=== PATIENT | female | born 1965 | race Caucasian/White ===

== ENCOUNTER 2025-05-19 06:05 | Emergency (ER) | payer OTHER, SELFPAY ==
[2025-05-19 06:09] VITALS: BP 160/82; PULSE 82; TEMP 36.9; O2SAT 96; BMI 35.7
--- NOTE | 2025-05-19 06:28 | ED_ITS ---
HPI HPI - Extremity Injury (Lower) General Chief Complaint: Extremity Injury, Lower Stated Complaint: R KNEE PAIN Time Seen by Provider: 05/19/25 06:28 Source: patient Mode of arrival: walk-in Limitations: no limitations History of Present Illness HPI Narrative: states yesterday walking in her driveway and experienced acute pain at her right knee. Describes a pop of the knee. Pain has progressed and is now also in her calf. No chest pain or dyspnea. No fever or chills Related Data Allergies Allergy/AdvReac Type Severity Reaction Status Date / Time latex AdvReac Mild Rash Verified 05/19/25 06:17 meperidine (From Demerol) AdvReac Mild Rash Verified 05/19/25 06:17 Review of Systems ROS Status of ROS 10 or more systems reviewed and unremark able except as noted in history and below PFSH PFSH Social History Little interest or pleasure in doing things: not at all Feeling down, depressed, or hopeless: not at all Exam Constitutional Vital Signs, click to edit/add: Last Vital Signs Temp 98.5 F 05/19/25 06:09 Pulse 82 05/19/25 06:09 Resp 18 05/19/25 06:09 BP 160/82 H 05/19/25 06:09 Pulse Ox 96 05/19/25 06:09 O2 Del Method Room Air 05/19/25 06:09 Common normals: no apparent distress, average body habitus, oriented x3, no limitations, healthy appearing, alert and well nourished [facility] Common normals: normocephalic, head/scalp atraumatic and hearing grossly normal bilaterally Eye Common normals: PERRL, EOMs intact bilaterally and conjunctivae normal Respiratory Common normals: normal respiratory effort, no retractions, no use of accessory muscles and clear to auscultation bilaterally Cardio Common normals: regular rate, regular rhythm, S1 normal heart sound and S2 normal heart sound Extremity Other: no obvious swelling of her right leg. Does have popliteal and calf tenderness able to flex and extend the knee Neuro Common normals: oriented x3, CN's II-XII intact bilaterally, moves all extremities and no focal motor deficits Psych Appearance: grossly normal Course Vital Signs Vital signs: Vital Signs Temperature 98.5 F 05/19/25 06:09 Pulse Rate 82 05/19/25 06:09 Respiratory Rate 18 05/19/25 06:09 Blood Pressure 160/82 H 05/19/25 06:09 Pulse Oximetry 96 05/19/25 06:09 Oxygen Delivery Method Room Air 05/19/25 06:09 Temperature 98.5 F 05/19/25 06:09 Pulse Rate 82 05/19/25 06:09 Respiratory Rate 18 05/19/25 06:09 Blood Pressure 160/82 H 05/19/25 06:09 Pulse Oximetry 96 05/19/25 06:09 Oxygen Delivery Method Room Air 05/19/25 06:09 MDM - Extremity Injury (Lower) MDM Narrative Medical decision making narrative: presents with acute pain of the right knee that has extended into the calf. pain with weight bearing. labs and diagnostic studies ordered. care transferred to Dr Gaspar at change of shift Discharge Plan Discharge Chief Complaint: Extremity Injury, Lower Print Language: Trinidadian Referrals: Meggan Buenrostro, TOPOGRAPHICAL FIELD ASSISTANT [Primary Care Provider] - 1 week
--- NOTE | 2025-05-19 06:32 | XR_ITS ---
[address] [address] Patient Name: JUANA SHIN MRN: [id number] date: 1965 Sex: F Assigned Patient Location: ER Current Patient Location: ED.MAIN Accession/Order Number: [id number] Exam Date: 05/19/2025 07:57 Report Date: 05/19/2025 07:58 At the request of: JESUSITA SILVA MD Procedure: XR knee RT 3V XR knee RT 3V 05/19/2025 6:51 AM SIGNS AND SYMPTOMS: ^pain PROTOCOL: Frontal, lateral, and oblique radiographs of the right knee COMPARISON: None FINDINGS: There is mild narrowing of the medial weightbearing joint space with spurring of the tibial spines. There is spurring of the medial femoral condyle and medial tibial plateau. There is enthesophyte formation at the quadriceps insertion. No joint effusion. No soft tissue swelling. No fracture. XR/XR knee RT 3V IMPRESSION: No fracture or dislocation. Mild degenerative changes noted greatest in the medial weightbearing joint space. Impression dictated by: Jenaro Dolan M.D. 05/19/2025 7:58 AM Dictation Location: [place] [address] Electronically authenticated by: [id number] Y Date: 05/19/2025 07:58
[2025-05-19 06:51] LABS: Hematocrit 38.3 % (36.0-48.0); Hemoglobin 12.7 g/dL (12.0-16.0); Immature Granulocytes Abs Auto 0.02 10^3/uL (0.00-0.03); Immature Granulocytes Pct Auto 0.3 % (0.0-0.5); Lymphocytes Absolute Auto 1.4 10^3/uL (1.2-3.8); Mean Corpuscular HGB Conc 33.2 g/dL (29.9-35.2); Mean Corpuscular Hemoglobin 29.3 pg (26.7-34.0); Mean Corpuscular Volume 88.2 fL (81.0-99.0); Platelet Count 176 10^3/uL (150-450); Red Blood Count 4.34 10^6/uL (4.20-5.40); White Blood Count 7.6 10^3/uL (4.0-11.0)
[2025-05-19 07:20] LABS: Anion Gap 13.9; Blood Urea Nitrogen 16.0 mg/dL (7.0-18.0); Calcium 9.5 mg/dL (8.5-10.1); Carbon Dioxide 27.3 mmol/L (21.0-32.0); Chloride 103 mmol/L (98-107); Estimated GFR (African America >60 (>=60 mL/min/1.73m^2); Estimated GFR (Non-African Ame 59 (>=60 mL/min/1.73m^2); Glucose 115 mg/dL (74-106); Potassium 4.2 mmol/L (3.5-5.1); Sodium 140 mmol/L (136-145)
--- NOTE | 2025-05-19 08:09 | ED.GENADUL1 ---
HPI HPI - General Adult General Chief complaint: Extremity Injury, Lower Stated complaint: R KNEE PAIN Time Seen by Provider: 05/19/25 06:28 Source: patient Mode of arrival: walk-in Limitations: no limitations History of Present Illness HPI narrative: 59-year-old female presents to the emergency department and was initially seen by Dr. Feliz. Please see his full history and physical exam. Related Data Previous Rx's ?Medication ?Instructions ?Recorded acetaminophen 300 mg-codeine 30 mg 1 tab PO Q6H PRN pain 5 days #20 05/19/25 tablet tabs ibuprofen 800 mg tablet 800 mg PO Q8H PRN pain #20 tabs 05/19/25 Allergies Allergy/AdvReac Type Severity Reaction Status Date / Time latex AdvReac Mild Rash Verified 05/19/25 06:17 meperidine (From Demerol) AdvReac Mild Rash Verified 05/19/25 06:17 PFSH PFSH Social History Little interest or pleasure in doing things: not at all Feeling down, depressed, or hopeless: not at all Exam Constitutional Vital Signs, click to edit/add: Last Vital Signs Temp 98.5 F 05/19/25 06:09 Pulse 82 05/19/25 06:09 Resp 18 05/19/25 06:09 BP 160/82 H 05/19/25 06:09 Pulse Ox 96 05/19/25 06:09 O2 Del Method Room Air 05/19/25 06:09 Course Vital Signs Vital signs: Vital Signs Temperature 98.5 F 05/19/25 06:09 Pulse Rate 82 05/19/25 06:09 Respiratory Rate 18 05/19/25 06:09 Blood Pressure 160/82 H 05/19/25 06:09 Pulse Oximetry 96 05/19/25 06:09 Oxygen Delivery Method Room Air 05/19/25 06:09 Temperature 98.5 F 05/19/25 06:09 Pulse Rate 82 05/19/25 06:09 Respiratory Rate 18 05/19/25 06:09 Blood Pressure 160/82 H 05/19/25 06:09 Pulse Oximetry 96 05/19/25 06:09 Oxygen Delivery Method Room Air 05/19/25 06:09 Medical Decision Making MDM Narrative Medical decision making narrative: No DVT is identified and x-ray shows some degenerative changes. She has a walker and is prescribed Motrin and Tylenol 3. She has an established orthopedist and she will follow-up with him. Treatment diagnosis and follow-up were discussed with the patient. Differential Diagnosis Differential Diagnosis: Knee sprain, fracture, effusion, DVT Lab Data Lab results reviewed: Yes I reviewed the patient's lab results Labs: Lab Results 05/19/25 Range/Units 06:41 WBC 7.6 (4.0-11.0) 10^3/uL RBC 4.34 (4.20-5.40) 10^6/uL Hgb 12.7 (12.0-16.0) g/dL Hct 38.3 (36.0-48.0) % MCV 88.2 (81.0-99.0) fL MCH 29.3 (26.7-34.0) pg MCHC 33.2 (29.9-35.2) g/dL RDW 13.7 (11.0-15.0) % Plt Count 176 (150-450) 10^3/uL MPV 11.1 (9.5-13.5) fL Neut % (Auto) 71.8 (43.0-75.0) % Lymph % (Auto) 17.8 L (20.5-60.0) % Stanton % (Auto) 7.0 (1.7-12.0) % Eos % (Auto) 2.6 (0.9-7.0) % Baso % (Auto) 0.5 (0.2-2.0) % Neut # (Auto) 5.4 (1.4-6.5) 10^3/uL Lymph # (Auto) 1.4 (1.2-3.8) 10^3/uL Stanton # (Auto) 0.5 (0.3-0.8) 10^3/uL Eos # (Auto) 0.2 (0.0-0.7) 10^3/uL Baso # (Auto) 0.0 (0.0-0.1) 10^3/uL Abs Immat Gran (auto) 0.02 (0.00-0.03) 10^3/uL Imm/Tot Granulo (auto) 0.3 (0.0-0.5) % D-Dimer 0.43 (<=0.59) mg/L FEU Sodium 140 (136-145) mmol/L Potassium 4.2 (3.5-5.1) mmol/L Chloride 103 (98-107) mmol/L Carbon Dioxide 27.3 (21.0-32.0) mmol/L Anion Gap 13.9 BUN 16.0 (7.0-18.0) mg/dL Creatinine 0.97 (0.55-1.02) mg/dL Est GFR ( Amer) >60 (>=60 mL/min/1.73m^2) Est GFR (Non-Af Amer) 59 L (>=60 mL/min/1.73m^2) BUN/Creatinine Ratio 16.5 Glucose 115 H (74-106) mg/dL Calcium 9.5 (8.5-10.1) mg/dL Imaging Data Knee x-ray: Radiologist's impression: ITS Impressions Knee X-Ray 05/19/25 06:32 IMPRESSION: No fracture or dislocation. Mild degenerative changes noted greatest in the medial weightbearing joint space. Impression dictated by: Jenaro Dolan M.D. 05/19/2025 7:58 AM Dictation [facility] Electronically authenticated by: [id number] Y Date: 05/19/2025 07:58 No DVT per time study technologist Discharge Plan Discharge Chief Complaint: Extremity Injury, Lower Clinical Impression: Right knee sprain Patient Disposition: Home, Self-Care Time of Disposition Decision: 08:07 Condition: Good Mode of Transportation: Private Vehicle Prescriptions / Home Meds: New acetaminophen-codeine 300-30 mg tablet 1 tab PO Q6H PRN (Reason: pain) 5 Days Qty: 20 0RF ibuprofen 800 mg tablet 800 mg PO Q8H PRN (Reason: pain) Qty: 20 0RF Print Language: Vietnamese Instructions: Knee Sprain (ED) Additional Instructions: Follow-up with your orthopedist Referrals: Meggan Buenrostro P[employer] TURNER [Primary Care Provider] - 1 week
== END 2025-05-19 08:22 | disposition home or self-care (01) ==
PROVIDERS: Internal Medicine; Emergency Provider Emergency Medicine; PCP Nurse Practitioner Family
DX: S83.91XA Sprain of unspecified site of right knee, initial encounter (principal); X58.XXXA Exposure to other specified factors, initial encounter; M79.661 Pain in right lower leg
CPT/HCPCS: 36415; 73562; 80048; 85025; 85378; 93971; 99285